=== PATIENT | male | born 1980 | race American Indian/Alaskan Native ===

== ENCOUNTER 2020-04-02 13:37 | Emergency (ER) | payer MEDICAID, OTHER ==
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
[2020-04-02] MEDS ORDERED: Acetaminophen/HYDROcodone 325-10 MG Tab PO ONE (14:17)
[2020-04-02] MEDS ORDERED: ceFAZolin 1 GM in Premix Bag 1 BAG IV ONE (14:17)
[2020-04-02] MEDS ORDERED: Ketorolac 30 MG/ML SDV IVPUSH ONE (14:18)
[2020-04-02] MEDS ORDERED: Lidocaine 5% Oint 35.44 GM Tube TOP ONE (14:18)
[2020-04-02] MEDS ORDERED: Silver Sulfadiazine 1% Crm 50 GM Tube TOP ONE (14:18)
[2020-04-02] MEDS ORDERED: Sodium Chloride 0.9% 10 ML Syringe FLUSH PRN (14:19)
[2020-04-02] MEDS ORDERED: Diphtheria,Pertussis(Acell),Tetanus Vaccine 0.5 ML SDV IM ONE (14:19)
== END 2020-04-02 15:09 | disposition home or self-care (01) ==
LOC: DL.ED 13:37
DX: T22.211A Burn of second degree of right forearm, initial encounter (principal); T21.21XA Burn of second degree of chest wall, initial encounter; T22.20XA Burn of second degree of shoulder and upper limb, except wrist and hand, unspecified site, initial encounter; Z23 Encounter for immunization; X03.0XXA Exposure to flames in controlled fire, not in building or structure, initial encounter
CPT/HCPCS: 16020; 90471; 90715; 96365; 96375; 99283; A9270; J0690; J1885

== ENCOUNTER 2020-12-30 15:40 | Emergency (ER) | payer MEDICAID ==
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
== END 2020-12-30 17:20 | disposition home or self-care (01) ==
LOC: DL.ED 15:40
DX: S63.91XA Sprain of unspecified part of right wrist and hand, initial encounter (principal); W50.0XXA Accidental hit or strike by another person, initial encounter
CPT/HCPCS: 73130-RT; 99283

== ENCOUNTER 2021-12-18 13:49 | Emergency (ER) | payer SELFPAY | END 2021-12-18 21:13 | disposition left against medical advice (07) | LOC: DL.ED 13:49 | DX: Z53.21 Procedure and treatment not carried out due to patient leaving prior to being seen by health care provider (principal) ==

== ENCOUNTER 2022-05-02 21:16 | Emergency (ER) | payer MEDICAID | END 2022-05-03 02:28 | disposition home or self-care (01) | LOC: DL.ED 21:16 | DX: S01.112A Laceration without foreign body of left eyelid and periocular area, initial encounter (principal); S20.212A Contusion of left front wall of thorax, initial encounter; S70.12XA Contusion of left thigh, initial encounter; Y04.0XXA Assault by unarmed brawl or fight, initial encounter | CPT/HCPCS: 70486; 71101-LT; 99284-25 ==